=== PATIENT | female | born 1935 | race Caucasian/White ===

== ENCOUNTER 2016-10-26 12:31 | Day surgery (SDC) | payer MEDICARE, BC ==
[2016-10-26 13:25] VITALS: BP 107/71; PULSE 81; RESP 14; TEMP 97; O2SAT 98
[2016-10-26] MEDS ORDERED: LIDOCAINE HCL 1% 20 ML VIAL ONE (13:39)
--- NOTE | 2016-10-26 15:34 | RADRPT ---
EXAM DATE/TIME: 10/26/2016 13:32 [place] COMPARISON: No previous studies available for comparison. EXTERNAL COMPARISON: [facility], [place] PARATHYROID SCAN, Oct 24 2016. INDICATIONS : Right thyroid nodule. MEDICAL HISTORY : Hypertension. Right thyroid nodule. Osteopenia. Left breast cancer. SURGICAL HISTORY : Bilateral knee surgery. Left breast lumpectomy. Cataract removal. ENCOUNTER: Initial ACUITY: 1 day PAIN SCORE: 0/10 LOCATION: Right neck ORGAN: Right thyroid lobe SPECIMENS: Four fine needle aspirate(s) submitted for pathologic evaluation. DEVICE: 22 gauge needle Post procedure scanning reveals no hematoma or other complication. The possibility does exist that the tissue obtained will be non-diagnostic. If the sample is non-sheila gnostic a repeat biopsy or surgical biopsy may need to be performed. TECHNIQUE: 1. Ultrasound guidance for needle biopsy. 2. Needle biopsy. The risks, benefits, and alternatives to ultrasound guided needle biopsy were explained to the patien t in detail including the risk of bleeding and infection. Written and verbal informed consent was ob tained. With the patient on the ultrasound table, images were obtained. Overlying skin was prepped and drape d in the usual sterile fashion and Lidocaine was utilized as a local anesthetic. A needle was advanced into the identified target and the number of specimens as above obtained and ovalles bmitted for pathologic evaluation. The patient tolerated the procedure well and left the ultrasound suite in stable condition. CONCLUSION: Uncomplicated ultrasound guided needle biopsy of a subtle nodule involving the posterior portion of t he right lobe.. Juan Carranza Jr., MD on October 26, 2016 at 15:30 Board Certified Radiologist. This report was verified electronically.
[2016-11-16] MEDS ORDERED: MAGN500T2 PO (11:12)
[2016-11-16] MEDS ORDERED: VITA-98 PO (11:12)
[2016-11-16] MEDS ORDERED: CARV3.12 PO (11:12)
[2016-11-16] MEDS ORDERED: ASPI-110 PO (11:12)
[2016-11-16] MEDS ORDERED: CODCAP6 PO (11:12)
[2016-11-16] MEDS ORDERED: ALPR0.25 PO (11:12)
[2016-11-16] MEDS ORDERED: POTA-243 PO (11:12)
[2016-11-16] MEDS ORDERED: KRIL300C3 PO (11:12)
[2016-11-16] MEDS ORDERED: CALC200S NASAL (11:12)
[2016-11-16] MEDS ORDERED: PYRI100T PO (11:12)
[2016-11-16] MEDS ORDERED: FLAX100013 PO (11:12)
[2016-11-16] MEDS ORDERED: COQ-100C5 PO (11:12)
[2016-11-16] MEDS ORDERED: CHOL1TAB42 PO (11:12)
[2016-11-16] MEDS ORDERED: VITA500T83 PO (11:12)
[2016-11-16] MEDS ORDERED: SELE200T8 PO (11:12)
[2016-11-22] MEDS ORDERED: NORC5TAB PO (11:22)
== END 2016-10-26 16:02 | disposition home or self-care (01) ==
LOC: HRAD 12:31 → HRIP 12:32 → HRAD 16:02
PROVIDERS: ATTEND Surgery
DX: E04.1 Nontoxic single thyroid nodule (principal); I10 Essential (primary) hypertension; Z85.3 Personal history of malignant neoplasm of breast
CPT/HCPCS: 10022; 76942; 88172; 88173

== ENCOUNTER → 2016-11-16 | Outpatient (CLI) | payer MEDICARE, BC ==
[~2016-11-16] MED LIST: ALPR0.25 PO; ASPI-110 PO; CALC200S NASAL; CARV3.12 PO; CHOL1TAB42 PO; CODCAP6 PO; COQ-100C5 PO; FLAX100013 PO; KRIL300C3 PO; MAGN500T2 PO; NORC5TAB PO; POTA-243 PO; PYRI100T PO; SELE200T8 PO; VITA-98 PO; VITA500T83 PO
[2016-11-16 11:31] LABS: AUTOMATED NEUTROPHIL # 1.8 TH/MM3 (1.8-7.7); BASOPHIL % 0.8 % (0.0-2.0); EOSINOPHIL # 0.1 TH/MM3 (0-0.4); EOSINOPHIL % 3.6 % (0.0-4.0); HEMO FLAGS DIFF FINAL; LYMPH % 39.5 % (9.0-44.0); LYMPHOCYTE # 1.5 TH/MM3 (1.0-4.8); MEAN CELL VOLUME 103.1 FL (80.0-100.0); MEAN CORPUSCULAR HEMOGLOBIN 33.7 PG (27.0-34.0); MEAN CORPUSCULAR HGB CONC 32.7 % (32.0-36.0); MONO % 9.4 % (0.0-8.0); NEUT % 46.7 % (16.0-70.0); PLATELET COUNT 179 TH/MM3 (150-450); RED BLOOD COUNT 4.27 MIL/MM3 (4.00-5.30); RED CELL DISTRIBUTION WIDTH 14.8 % (11.6-17.2); WHITE BLOOD COUNT 3.8 TH/MM3 (4.0-11.0)
[2016-11-16 11:45] LABS: ANION GAP 5 MEQ/L (5-15); AST (GOT) 24 U/L (15-37); BICARBONATE 30.2 MEQ/L (21.0-32.0); BLOOD UREA NITROGEN 10 MG/DL (7-18); CHLORIDE 104 MEQ/L (98-107); GLOMERULAR FILTRATION RATE 81 ML/MIN (>89); GLUCOSE,FASTING 102 MG/DL (74-99); POTASSIUM 4.4 MEQ/L (3.5-5.1); SODIUM (NA) 139 MEQ/L (136-145)
[2016-11-16 11:47] LABS: ALT (GPT) 29 U/L (10-53)
[2016-11-16 11:48] LABS: ALKALINE PHOSPHATASE 97 U/L (45-117); TOTAL BILIRUBIN ADULT 0.4 MG/DL (0.2-1.0)
--- NOTE | 2016-11-16 23:51 | EKG ---
Date Performed: 11/16/2016 Time Performed: 10:54:22 PTAGE: 81 years EKG: Sinus rhythm NORMAL ECG NO PREVIOUS TRACING DOCTOR: Jose Angel Damon Interpretating Date/Time 11/16/2016 23:49:53
== END ==
LOC: CPRE 10:13
PROVIDERS: ATTEND Surgery
DX: Z01.810 Encounter for preprocedural cardiovascular examination (principal); Z01.812 Encounter for preprocedural laboratory examination; E04.9 Nontoxic goiter, unspecified
CPT/HCPCS: 36415; 80053; 85025; 93005

== ENCOUNTER → 2016-11-22 | Day surgery (SDC) | payer MEDICARE, BC ==
[~2016-11-22] VITALS: Ht 167.6 cm; Wt 72.9 kg
[~2016-11-22] MED LIST changes: +ACETAMINOPHEN 1000 MG/100 ML 100 ML IV ONE; +ACETAMINOPHEN/HYDROcodone 325 MG/5 MG TAB PO PRN; +BUPIVACAINE HCL PF 0.5% 30 ML VIAL ONE; +CHLORHEXIDINE GLUCONATE 2 % 1 PACK (2 CLOTHS) TOPICAL PRN; +DEXAMETHASONE SOD PHOS 4 MG/ML VIAL IV ONE; +DO NOT ADM ANY ANTICOAGULANT DRUGS PRN; +GLYCOPYRROLATE 1 MG/5 ML SYRINGE IV PUSH ONE; +INSULIN HUMAN REGULAR 1,000 UNITS/10 ML VIAL SQ PRN; +LACTATED RINGER'S 1000 ML IV PRN; +LIDOCAINE HCL 1% PF 5 ML AMPULE OTHER ONE; +METOPROLOL TARTRATE 25 MG TAB PO PRN; +MIDAZOLAM HCL 2 MG/2 ML VIAL ONE; +NORMOSOL R INJ 1,000 ML IV ONE; +ONDANSETRON HCL 4 MG/2 ML VIAL IV PUSH ONE; +PHENYLEPH/NS 1000 MCG/10 ML SYR IV ONE; +POVIDONE IODINE 5% (ANTISEPSIS KIT) 4 APPLICATIONS EACH NARE PRN; +PROPOFOL 200 MG/20 ML AMP IV ONE; +SODIUM CHLORID 0.9% 500 ML IV PRN; +SUCCINYLCHOLINE CHLORIDE 100 MG/5 ML SYRINGE IV PUSH ONE; +ceFAZolin INJ 1,000 MG VIAL ONE; +ePHEDrine/NS 25 MG/5 ML SYR IV ONE
--- NOTE | 2016-11-22 11:54 | MP ---
cc: NANCY MONTANA DATE OF SURGERY: 11/22/2016 PREOPERATIVE DIAGNOSIS: 1. 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 Right inferior thyroid mass. 3. Primary hyperparathyroidism. POSTOPERATIVE DIAGNOSIS: 1. Intrathyroidal right inferior parathyroid adenoma. 2. Thyroid mass, right inferior lobe. OPERATION: 1. Identification of parathyroid adenoma of right inferior gland that appeared to be intrathyroidal in the inferior aspect of the right thyroid gland. 2. Identification of right inferior parathyroid adenoma by intraoperative localization 3. Removal of right lobe of thyroid with intrathyroidal parathyroid adenoma. ANESTHESIA: General with intraoperative monitoring. SURGEON: Dr. [place]. INDICATIONS FOR PROCEDURE: This is a pleasant 81 year old female who was noted to have hypercalcemia. She also had a nodule in her right glands, intraoperatively it was noted during the session that the parathyroid adenoma was actually intrathyroidal. We could not separate away from the thyroid gland because of the growing mass in the thyroid we elected to proceed with a thyroidectomy and a parathyroidectomy of these two separate glanular structures. PROCEDURE The patient was taken to the operating room and placed in supine position after anesthesia. Her neck was prepped with Betadine. She had been previously injected with the radio nucleotide identified the parathyroid adenoma. We get a higher spot in the right inferior gland which was noted in the preop workup. We first made a little mini incision in the right side of the neck. After doing a time-out. We dissected down through the platysma muscle identifying the count in the 500 range with the navigator probe. However, it came apparent that this parathyroid adenoma was extra intrathyroidal. Because of this we extended the incision to a normal thyroid inferior thyroid incision. The strap of the platysma muscle . We dissected down through the strap muscles, the strap muscles were retracted laterally. The right gland of the thyroid is then identified. Again we get a hot spot in the inferior aspect of the thyroid gland in the 500 range the baseline throughout is about 200. Because it became apparent that this parathyroid adenoma was within the gland and the fact that she has a growing mass in the thyroid it was biopsied which was just a goiter. Plans were made for right thyroidectomy. We just take the superior thyroidal vessel down with harmonic scalpel. The inferior thyroidal vessels and the medial thyroidal vein. We then dissect up the gland off the trachea, from the isthmus along the tracheal using a harmonic scalpel and it is noted that the recurrent laryngeal nerve is very close to the thyroid and using meticulous dissection were able dissect the thyroid off the trachea identifying the recurrent laryngeal nerve with the intraoperative monitor avoiding damaging it. The whole right gland of the thyroid is removed on the right side at the isthmus and with the intrathyroidal parathyroid adenoma this is sent down for frozen section and Dr. Dian Gilliam confirms the intrathyroidal parathyroid adenoma. Of course permanent sections will be done. We did check our dissection site and using the navigator probe again we do not get the 500 count that we did not prior to removing the right thyroid gland and the intrathyroidal parathyroid adenoma. We then irrigated copiously. Hemostasis assured. We did put some Santi in the wounds. We then reapproximate the strap muscles in the midline, platysma muscle with 3-0 Vicryl and the skin is closed with 4-0 Vicryl. Steri-Strips applied. The patient tolerated the procedure well, awakened in the operating room with normal voice and no shortness of breath and no difficulty swallowing. MD JULIO Hicks/karen /11:07 AM /11:39 AM [facility]
[2016-11-22 12:20] VITALS: BP 128/61; PULSE 78; RESP 20; TEMP 97.3; O2SAT 94
== END | disposition home or self-care (01) ==
LOC: HSDC 05:35
PROVIDERS: ATTEND Surgery
DX: D35.1 Benign neoplasm of parathyroid gland (principal); E21.0 Primary hyperparathyroidism; D51.9 Vitamin B12 deficiency anemia, unspecified; M85.80 Other specified disorders of bone density and structure, unspecified site; I10 Essential (primary) hypertension; E78.5 Hyperlipidemia, unspecified; Z85.3 Personal history of malignant neoplasm of breast
CPT/HCPCS: 00320; 60500; 78808; 88305; 88331; A9500; J0131; J0330; J0690; J1100; J2250; J2370; J2405; J3010; J7120; 88307